=== PATIENT | female | born 1930 | race Caucasian/White ===

== ENCOUNTER 2020-05-29 12:40 | Inpatient (IN) ==
[2020-05-29 13:57] LABS: INR 1.3; Prothrombin Time 14.8 Seconds (9.4-12.1)
[2020-05-29 13:59] LABS: Activated Partial Thrombo Time 34.4 Seconds (26.0-36.0)
[2020-05-29 14:05] LABS: Basophils % 0.3 %; Eosinophils % 0.3 %; Hematocrit 19.6 % (35.3-44.9); Hemoglobin 6.5 g/dL (11.5-15.4); Lymphocytes # 0.8 K/mcL (0.6-4.6); Lymphocytes % 11.9 %; Mean Corpuscular HGB Conc 33.2 g/dL (31.6-35.5); Mean Corpuscular Hemoglobin 28.6 pg (28.0-33.3); Mean Corpuscular Volume 86.3 fL (83.0-100.0); Mean Platelet Volume 12.1 fL (9.4-12.4); Monocytes # 0.5 K/mcL (0.0-1.3); Platelet Count 120 K/mcL (140-400); Red Blood Count 2.27 M/mcL (3.82-4.97); Red Cell Distribution Width 16.8 % (11.5-14.5); Segmented Neutrophils % 77.5 %; White Blood Count 6.5 K/mcL (4.3-11.1)
[2020-05-29 14:13] LABS: Alanine Aminotransferase 56 Units/L (7-52); Albumin 2.3 g/dL (3.5-5.7); Albumin/Globulin Ratio 0.7 (1.1-2.2); Alkaline Phosphatase 312 Units/L (34-104); Aspartate Amino Transferase 60 Units/L (13-39); BUN/Creatinine Ratio 36 (6-26); Bilirubin,Total 1.8 mg/dL (0.3-1.0); Blood Urea Nitrogen 18 mg/dL (8-23); Calcium 7.8 mg/dL (8.6-10.3); Carbon Dioxide 24 mEq/L (23-29); Chloride 101 mEq/L (98-107); Globulin 3.1 g/dL (2.4-3.5); Glucose 130 mg/dL (70-105); Lipase 11 Units/L (11-82); Magnesium 1.7 mg/dL (1.6-2.6); Osmolality,Calculated 278 (280-300); Potassium 3.9 mEq/L (3.5-5.1); Sodium 132 mEq/L (136-145); Total Protein 5.4 g/dL (6.4-8.9); Troponin I 0.04 ng/mL (< 0.04); eGFR For African Americans > 60 (> 60); eGFR For Non-African Americans > 60 (> 60)
[2020-05-29] MEDS ORDERED: Aspirin 325 MG TABLET PO ONE (17:33)
[2020-05-29] MEDS ORDERED: Ondansetron 4 MG/2 ML VIAL IVP PRN (17:33)
[2020-05-29] MEDS ORDERED: Naloxone 0.4 MG/ML INJ IVP PRN (17:43)
[2020-05-29] MEDS ORDERED: Ringers Solution, Lactated 1,000 ML IVC SCH (17:45)
[2020-05-29] MEDS ORDERED: Calcium Gluconate 1gm/50mL 1 GM/50 ML BAG IVPB ONE (17:51)
[2020-05-29] MEDS: Piperacillin/Tazobactam 3.375 GM in 0.9 % Sodium Chloride Mini Bag 100 ML IVPB SCH (23:14)
[2020-05-30 02:32] LABS: Basophils % 0.2 %; Eosinophils % 0.6 %; Mean Corpuscular HGB Conc 32.2 g/dL (31.6-35.5); Red Cell Distribution Width 16.8 % (11.5-14.5)
[2020-05-30 02:33] LABS: Hematocrit 17.7 % (35.3-44.9); Immature Granulocytes % 1.9 % (0-4); Lymphocytes # 0.6 K/mcL (0.6-4.6); Lymphocytes % 10.7 %; Mean Corpuscular Hemoglobin 27.9 pg (28.0-33.3); Mean Corpuscular Volume 86.8 fL (83.0-100.0); Mean Platelet Volume 12.1 fL (9.4-12.4); Monocytes # 0.7 K/mcL (0.0-1.3); Monocytes % 13.9 %; Neutrophils # 3.8 K/mcL (1.6-8.9); Platelet Count 107 K/mcL (140-400); Red Blood Count 2.04 M/mcL (3.82-4.97); Segmented Neutrophils % 72.7 %; White Blood Count 5.2 K/mcL (4.3-11.1)
[2020-05-30 02:36] LABS: INR 1.2; Prothrombin Time 14.1 Seconds (9.4-12.1)
[2020-05-30 02:39] LABS: Hemoglobin 5.7 g/dL (11.5-15.4)
[2020-05-30 03:06] LABS: Troponin I 0.04 ng/mL (< 0.04)
[2020-05-30 03:41] LABS: Anisocytosis 1+ (Not Present); Platelet Estimate Normal (Normal)
[2020-05-30] MEDS ORDERED: 0.9 % Sodium Chloride 250 ML ONE ×2 (04:59→08:03)
[2020-05-30 07:37] LABS: Acinetobacter baumannii by PCR Not Detected (Not Detect); Candida albicans by PCR Not Detected (Not Detect); Candida glabrata by PCR Not Detected (Not Detect); Candida krusei by PCR Not Detected (Not Detect); Candida parapsilosis by PCR Not Detected (Not Detect); Candida tropicalis by PCR Not Detected (Not Detect); Enterobacter cloacae Cmplx PCR Not Detected (Not Detect); Enterococcus by PCR Not Detected (Not Detect); Escherichia coli by PCR DETECTED (Not Detect); Klebsiella oxytoca by PCR Not Detected (Not Detect); Klebsiella pneumoniae by PCR Not Detected (Not Detect); Proteus by PCR Not Detected (Not Detect); Pseudomonas aeruginosa by PCR Not Detected (Not Detect); Serratia marcescens by PCR Not Detected (Not Detect); Staphylococcus aureus by PCR Not Detected (Not Detect); Staphylococcus by PCR Not Detected (Not Detect); Streptococcus agalactiae(B)PCR Not Detected (Not Detect); Streptococcus by PCR Not Detected (Not Detect); Streptococcus pneumoniae PCR Not Detected (Not Detect); Streptococcus pyogenes (A) PCR Not Detected (Not Detect); blaKPC Carbapenem-Resist Gene Not Detected (Not Detect)
[2020-05-30 07:48] LABS: Alanine Aminotransferase 44 Units/L (7-52); Albumin 2.1 g/dL (3.5-5.7); Albumin/Globulin Ratio 0.8 (1.1-2.2); Alkaline Phosphatase 263 Units/L (34-104); Aspartate Amino Transferase 45 Units/L (13-39); BUN/Creatinine Ratio 32 (6-26); Bilirubin,Direct 0.6 mg/dL (0.0-0.2); Bilirubin,Indirect 0.8 mg/dL (0.0-1.0); Bilirubin,Total 1.4 mg/dL (0.3-1.0); Blood Urea Nitrogen 18 mg/dL (8-23); Carbon Dioxide 25 mEq/L (23-29); Chloride 103 mEq/L (98-107); Globulin 2.7 g/dL (2.4-3.5); Glucose 117 mg/dL (70-105); Osmolality,Calculated 277 (280-300); Phosphorous 2.7 mg/dL (2.7-4.5); Potassium 4.2 mEq/L (3.5-5.1); Sodium 132 mEq/L (136-145); Total Protein 4.8 g/dL (6.4-8.9); eGFR For African Americans > 60 (> 60); eGFR For Non-African Americans > 60 (> 60)
[2020-05-30] MEDS ORDERED: 0.9 % Sodium Chloride 500 ML ONE (08:03)
[2020-05-30] MEDS ORDERED: Aspirin Enteric Coated 81 MG Tablet PO SCH (09:00)
[2020-05-30] MEDS ORDERED: NON-FORMULARY MEDICATION 1 EACH EACH (Vit A/Vit C/Vit E/Zinc/Copper [Preservision Areds Ta PO SCH (09:00)
[2020-05-30] MEDS: Piperacillin/Tazobactam 3.375 GM in 0.9 % Sodium Chloride Mini Bag 100 ML IVPB SCH ×2 (10:06→10:16)
[2020-05-30] MEDS ORDERED: *HR* Propofol 200 MG/20 ML VIAL IVP ONE (12:30)
[2020-05-30] MEDS ORDERED: Lidocaine -MPF 4% 5 ML AMPUL ONE (12:30)
[2020-05-30] MEDS ORDERED: *HR* FentaNYL (PF) 100 MCG/2 ML VIAL ONE (12:30)
[2020-05-30] MEDS ORDERED: Dexamethasone 4 MG/ML VIAL ONE (12:30)
[2020-05-30] MEDS ORDERED: Lidocaine -MPF 2% 2 ML VIAL ONE (12:30)
[2020-05-30] MEDS ORDERED: Ondansetron 4 MG/2 ML VIAL ONE (12:30)
[2020-05-30] MEDS ORDERED: Indomethacin 50 MG SUPP.RECT RC ONE ×2 (13:34→14:00)
[2020-05-30 16:01] LABS: Hematocrit 30.3 % (35.3-44.9)
[2020-05-30 16:10] LABS: Hemoglobin 10.3 g/dL (11.5-15.4)
[2020-05-30 16:12] LABS: Basophils % 0.4 %; Eosinophils % 0.5 %; Immature Granulocytes % 1.8 % (0-4); Lymphocytes # 0.4 K/mcL (0.6-4.6); Lymphocytes % 6.7 %; Mean Corpuscular HGB Conc 33.3 g/dL (31.6-35.5); Mean Platelet Volume 12.1 fL (9.4-12.4); Monocytes # 0.6 K/mcL (0.0-1.3); Monocytes % 10.4 %; Neutrophils # 4.4 K/mcL (1.6-8.9); Platelet Count 150 K/mcL (140-400); Red Blood Count 3.62 M/mcL (3.82-4.97); Segmented Neutrophils % 80.2 %; White Blood Count 5.5 K/mcL (4.3-11.1)
[2020-05-30] MEDS ORDERED: Piperacillin/Tazobactam 3.375 GM in 0.9 % Sodium Chloride Mini Bag 100 ML IVPB SCH (18:00)
[2020-05-30] MEDS ORDERED: Pantoprazole 40 MG VIAL IVP SCH (18:00)
[2020-05-30 21:15] LABS: Hematocrit 29.5 % (35.3-44.9); Hemoglobin 9.8 g/dL (11.5-15.4)
[2020-05-30 22:56] VITALS: BP 139/78
== END 2020-05-31 01:11 | disposition short-term general hospital (02) | DRG 871 ==
LOC: 3ANU 12:40 → EMEROOARM 12:40 → 3ANU 17:15
PROVIDERS: ADMIT Student in an Organized Health Care Education/Training Program; ATTEND Student in an Organized Health Care Education/Training Program